=== PATIENT | male | born 1940 | race Caucasian/White ===

== ENCOUNTER 2023-09-26 17:13 | Inpatient (IN) | payer MEDICARE ==
[2023-09-26] MEDS: LIDOCAINE 4% PATCH TOPICAL ONE (18:08)
[2023-09-26 18:21] LABS: HCT 47.7 % (39.0-53.0); HGB 15.6 gm/dL (13.0-17.5); MCH 33.9 pg (25.0-35.0); MCHC 32.8 g/dL (31.0-37.0); MCV 103.4 fL (80.0-100.0); Macrocytosis Moderate; Mean Platelet Volume 14.9; Platelet Count 128 k/uL (150-450); RBC 4.62 m/uL (4.30-5.90); RDW 15.9 % (11.5-15.5); WBC 14.3 k/uL (3.8-10.6)
[2023-09-26 18:43] LABS: African American GFR (CKD) 73 (>60 ml/min/1.73 sqM); Anion Gap 12 mmol/L; Blood Urea Nitrogen 21 mg/dL (9-20); Calcium 10.3 mg/dL (8.4-10.2); Carbon Dioxide 21 mmol/L (22-30); Chloride 104 mmol/L (98-107); Glucose 94 mg/dL (74-99); Non-African American GFR(CKD) 63 (>60 ml/min/1.73 sqM); Potassium 3.9 mmol/L (3.5-5.1); Sodium 137 mmol/L (137-145)
--- NOTE | 2023-09-26 18:47 | CT ---
EXAMINATION TYPE: CT lumbar spine wo con DATE OF EXAM: 09/26/2023 6:36 PM COMPARISON: None HISTORY: fall CT DLP: 669.7 mGycm Automated exposure control for dose reduction was used. Unenhanced CT of the lumbar spine was performed. Bone and soft tissue window settings are submitted as well as coronal and sagittal reconstructions. Findings: On the AP view, there is mild to moderate levoscoliosis. Lumbar vertebral segments are normal in alignment on the sagittal view. There are mild compression fractures of the superior endplates of L1 and L2, indeterminate age. There is no significant retropulsion. There is mild to moderate degenerative disease at the L2-3 level where there is mild to moderate dis c space narrowing and spondylosis. There is advanced degenerative disease at this L3-4, L4-5 and L5-S 1 levels where there is moderate to marked disc space narrowing, spondylosis and vacuum phenomena. Th ere are no large disc herniations. There is advanced facet arthropathy at the L4-5 level and mild facet arthropathy at the L2-3 and L3-4 levels. There are nondisplaced fractures of the bilateral sacral ala. . IMPRESSION: 1. Mild superior endplate fractures of L1 and L2 of indeterminate age. No significant retropulsion. 2. Nondisplaced fractures of the bilateral sacrum as described above. 3. Diffuse osteopenia. 4. Multilevel moderate to severe degenerative disc disease.
--- NOTE | 2023-09-26 18:50 | CT ---
EXAMINATION TYPE: CT pelvis wo con DATE OF EXAM: 09/26/2023 COMPARISON: None HISTORY: fall CT DLP: 245.6 mGycm Automated exposure control for dose reduction was used. FINDINGS: There are bilateral nondisplaced fractures of the sacral alar. The remaining pelvic structures are intact without fracture. There is moderate degenerative arthritis of the left hip and mild degenerative arthritis of the right hip. There are no hip fractures or dislocations. There is no diastases of the SI joints or pubic sym physis IMPRESSION: BILATERAL NONDISPLACED FRACTURES OF THE SACRAL ALA
[2023-09-26] MEDS ORDERED: NALOXONE 0.4 MG/ML 1 ML VIAL IV PRN (19:50)
[2023-09-26 19:52] LABS: Lymphocytes # (M) 1.86 k/uL (1.0-4.8); Monocytes # (M) 3.58 k/uL (0-1.0); Neutrophils # (M) 8.87 k/uL (1.3-7.7); Neutrophils % (M) 62 %; Nucleated Red Blood Cells 0 /100 WBC (0-0); Target Cells Present; Total Cells Counted 100
[2023-09-26 19:54] LABS: Large Platelets Present
[2023-09-26] MEDS ORDERED: ACETAMINOPHEN TAB 325 MG TAB PO PRN (20:02)
[2023-09-26] MEDS ORDERED: ONDANSETRON 4 MG/2 ML VIAL IVP PRN (20:02)
[2023-09-26] MEDS ORDERED: MORPHINE SULFATE 4 MG/ML SYRINGE IV PRN (20:02)
--- NOTE | 2023-09-26 20:04 | ED ---
General Adult HPI - General Chief complaint: Fall Stated complaint: Back pain Time Seen by Provider: 09/26/23 17:46 Source: patient, EMS, RN notes reviewed, old records reviewed Mode of arrival: EMS - History of Present Illness Initial comments: Patient is a 83-year-old male with past medical history remarkable for CMML, who presents emergency department complaining of lower back pain after a fall. Patient sat up on the edge of his bed and put weight on his feet when his socks caused him to slip and he fell straight down landing on his bottom. Did not hit his head. Did not lose consciousness. Only complains of lower back pain as well as pelvic pain. Denies any urinary or bowel incontinence or retention. Denies any lower extremity paralysis. Denies any saddle paresthesias. Is currently undergoing chemotherapy for CMML. Has no other acute complaints at this time. Presents for further evaluation. Is not on blood thinners. - Related Data Home Medications Medication Instructions Recorded Confirmed Acetaminophen [Tylenol Arthritis] 650 mg PO BID 09/26/23 09/26/23 Cholecalciferol (Vitamin D3) 50 mcg PO DAILY 09/26/23 09/26/23 [Vitamin D3 (50 Mcg = 2000 Iu)] Finasteride [Proscar] 5 mg PO DAILY 09/26/23 09/26/23 Latanoprost [Latanoprost 0.005%] 1 drop BOTH EYES DAILY 09/26/23 09/26/23 Levothyroxine Sodium [Synthroid] 100 mcg PO DAILY 09/26/23 09/26/23 Mv-Min/Folic/K1/Lycopen/Lutein 1 tab PO DAILY 09/26/23 09/26/23 [Centrum Silver Men Tablet] Ondansetron Odt [Zofran Odt] 4 mg PO Q8HR PRN 09/26/23 09/26/23 Tamsulosin [Flomax] 0.4 mg PO DAILY 09/26/23 09/26/23 Vitamin B Complex 1 cap PO DAILY 09/26/23 09/26/23 allopurinoL [Zyloprim] 100 mg PO DAILY 09/26/23 09/26/23 busPIRone HCl [Buspar] 10 mg PO BID 09/26/23 09/26/23 methocarbamoL [Robaxin-750] 750 mg PO TID PRN 09/26/23 09/26/23 Allergies Allergy/AdvReac Type Severity Reaction Status Date / Time Sulfa (Sulfonamide AdvReac Nausea Verified 09/26/23 17:39 Antibiotics) Review of Systems ROS Statement: Those systems with pertinent positive or pertinent negative responses have been documented in the HPI. Review of Systems: CONST: Denies fever EYES: Denies blurry vision ENT: Denies nasal congestion C/V: Denies Chest pain RESP: Denies shortness of breath GI: Denies abdominal pain : Denies dysuria SKIN: Denies rash. MSK: Endorses back pain NEURO: Denies headache ROS Other: All systems not noted in ROS Statement are negative. 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 Past Psychological History: Anxiety Smoking Status: Never smoker Past Alcohol Use History: None Reported Past Drug Use History: None Reported General Exam - General Exam Comments Initial Comments: General: Appears in no acute distress. HEAD: Normal with no signs of head trauma. EYES: PERRLA, EOMI, conjunctiva normal, no discharge. Pupils 3 mm and equal bilaterally. ENT: Hearing grossly intact, normal oropharynx. RESPIRATORY: Clear breath sounds bilaterally. No wheezes, rales, or rhonchi. C/V: Regular rate and rhythm. S1 and S2 auscultated, no edema, peripheral pulses 2+ and intact throughout ABD: Abd is soft, nontender, nondistended EXT: Normal range of motion, no obvious deformity no significant midline lumbar spine tenderness to palpation. No pelvis instability on palpation. Paraspinal muscle tenderness to palpation of the lower lumbar spine. No step-offs or deformities of the spine. SKIN: No rashes or lesions observed on exposed skin. NEURO: Alert and oriented x 4. Cranial nerves II-XII intact. No focal sensory o r strength deficits. Course Vital Signs 09/26/23 09/26/23 17:16 18:35 Temperature 97.6 F 98.0 F Pulse Rate 76 72 Respiratory 20 17 Rate Blood Pressure 148/66 138/70 O2 Sat by Pulse 99 99 Oximetry Medical Decision Making - Medical Decision Making Was pt. sent in by a medical professional or institution (, PA, TAFFY PULLER, urgent care, hospital, or skilled nursing...) When possible be specific @ -No Did you speak to anyone other than the patient for history (EMS, parent, family, police, friend...)? What history was obtained from this source @ -Patient's provides additional patient's past medical history as she is the primary historian and is aware of his current treatments. Did you review nursing and triage notes (agree or disagree)? Why? @ -I reviewed and agree with nursing and triage notes Were old charts reviewed (outside hosp., previous admission, EMS record, old EKG, old radiological studies, urgent care reports/EKG's, skilled nursing records)? Report findings @ -No old charts were reviewed Differential Diagnosis (chest pain, altered mental status, abdominal pain women, abdominal pain men, vaginal bleeding, weakness, fever, dyspnea, syncope, headache, dizziness, GI bleed, back pain, seizure, CVA, palpatations, mental health, musculoskeletal)? @ -Differential Musculoskeletal Muscular strain, contusion, ligament sprain, fracture, arthritis, septic arthritis, bursitis, cellulitis, muscle spasm, nerve compression, DVT, arterial occlusion, herpes zoster, electrolyte abnormality, tumor.... This is not meant to be in all inclusive list EKG interpreted by me (3pts min.). @ -None done X-rays interpreted by me (1pt min.). @ -None done CT interpreted by me (1pt min.). @ -CT lumbar spine and pelvis reveals L1 and L2 compression fractures of unknown age. Patient also has bilateral sacral pete fractures that are nondisplaced. U/S interpreted by me (1pt. min.). @ -None done What testing was considered but not performed or refused? (CT, X-rays, U/S, labs)? Why? @ -None What meds were considered but not given or refused? Why? @ -Offered systemic analgesia medications which were declined. Did you discuss the management of the patient with other professionals (professionals i.e. , PA, TAFFY PULLER, lab, RT, psych nurse, director of social media marketing, nutrition program instructor, teacher, logistics officer, rn case mgr)? Give summary @ -I spoke with on-call orthopedics, Dr. Flores. We discussed the imaging results. As the patient is nonoperative for his nondisplaced sacral fractures, and patient has been admitted for pain control, patient will be admitted under medicine with orthopedic consult as we both agree patient's care is nonoperative. I spoke with the admitting team, ISRAEL Joe of [facility] who accepted the admission. Was smoking cessation discussed for >3mins.? @ -No Was critical care preformed (if so, how long)? @ -No Were there social determinants of health that impacted care today? How? (Homelessness, low income, unemployed, alcoholism, drug addiction, transportation, low edu. Level, literacy, decrease access to med. care, group home, rehab)? @ -No Was there de-escalation of care discussed even if they declined (Discuss DNR or withdrawal of care, Hospice)? DNR status @ -No What co-morbidities impacted this encounter? (DM, HTN, Smoking, COPD, CAD, Cancer, CVA, ARF, Chemo, Hep., AIDS, mental health diagnosis, sleep apnea, morbid obesity)? @ -None Was patient admitted / discharged? Hospital course, mention meds given and route, prescriptions, significant lab abnormalities, going to OR and other pertinent info. @ -Based on the patient's presentation and physical exam, presents following a fall. Concern for possible lumbar spine or sacral injury. We will obtain CT imaging. I did offer analgesia medications which were declined. No red flag symptoms to suggest cauda equina symptoms. Will obtain basic labs. Family and patient were in agreement this plan. Vital signs within acceptable limits. Laboratory studies unremarkable. Within baseline for patient's CMML. CT imaging reveals lumbar compression fractures of L1 and L2 with no retropulsion of unknown chronicity as well as bilateral sacral fracture that is nondisplaced. Fractures appear to be nonoperative but patient is still in significant pain. I did recommend admission for pain control and he was in agreement this plan. No concern for cauda equina syndrome at this time. Neurologically intact. I spoke with orthopedic on-call Dr. Flores who was in agreement that this is a nonoperative injury. After discussion, we agreed to admit to medicine with orthopedics on this consult. I spoke with the admitting physician, ISRAEL Joe who accepted the admission for [facility]. Oncology consulted. Occult therapy consulted. Undiagnosed new problem with uncertain prognosis? @ -No Drug Therapy requiring intensive monitoring for toxicity (Heparin, Nitro, Insulin, Cardizem)? @ -No Were any procedures done? @ -No Diagnosis/symptom? @ -Bilateral nondisplaced pelvic fracture, lumbar spine compression fracture, fall Acute, or Chronic, or Acute on Chronic? @ -Acute Uncomplicated (without systemic symptoms) or Complicated (systemic symptoms)? @ -Uncomplicated Side effects of treatment? @ -No Exacerbation, Progression, or Severe Exacerbation? @ -No Poses a threat to life or bodily function? How? (Chest pain, [place], [place], pneumonia, PE, COPD, DKA, ARF, appy, cholecystitis, CVA, Diverticulitis, Homicidal, Suicidal, threat to staff... and all critical care pts) @ -Yes - Lab Data Result diagrams: 09/26/23 18:05 09/26/23 18:05 Lab Results 09/26/23 09/26/23 Range/Units 18:05 18:05 WBC 14.3 H (3.8-10.6) k/uL RBC 4.62 (4.30-5.90) m/uL Hgb 15.6 (13.0-17.5) gm/dL Hct 47.7 (39.0-53.0) % MCV 103.4 H (80.0-100.0) fL MCH 33.9 (25.0-35.0) pg MCHC 32.8 (31.0-37.0) g/dL RDW 15.9 H (11.5-15.5) % Plt Count 128 L (150-450) k/uL MPV 14.9 Neutrophils % (Manual) 62 % Lymphocytes % (Manual) 13 % Monocytes % (Manual) 25 % Neutrophils # (Manual) 8.87 H (1.3-7.7) k/uL Lymphocytes # (Manual) 1.86 (1.0-4.8) k/uL Monocytes # (Manual) 3.58 H (0-1.0) k/uL Nucleated RBCs 0 (0-0) /100 WBC Manual Slide Review Performed Large Platelets Present Macrocytosis Moderate Target Cells Present Sodium 137 (137-145) mmol/L Potassium 3.9 (3.5-5.1) mmol/L Chloride 104 (98-107) mmol/L Carbon Dioxide 21 L (22-30) mmol/L Anion Gap 12 mmol/L BUN 21 H (9-20) mg/dL Creatinine 1.09 (0.66-1.25) mg/dL Est GFR (CKD-EPI)AfAm 73 (>60 ml/min/1.73 sqM) Est GFR (CKD-EPI)NonAf 63 (>60 ml/min/1.73 sqM) Glucose 94 (74-99) mg/dL Calcium 10.3 H (8.4-10.2) mg/dL Disposition Clinical Impression: Sacral fracture, Lumbar compression fracture, Fall Disposition: ADMITTED IP TO THIS HOSP Condition: Stable Referrals: Nik Cristina MD [Primary Care Provider] - 1-2 days Time of Disposition: 19:54
[2023-09-26] MEDS ORDERED: ONDANSETRON ODT 4 MG TAB PO PRN (20:41)
[2023-09-26] MEDS ORDERED: methocarbamoL 750 MG TAB PO PRN (20:41)
[2023-09-26 21:12] LABS: INR 1.1 (<1.2); Prothrombin Time 12.1 sec (10.0-12.5)
[2023-09-26] MEDS: busPIRone HCl 10 MG TAB PO SCH (21:29)
[2023-09-27] MEDS: LEVOTHYROXINE 100 MCG TAB PO SCH (06:19)
[2023-09-27] MEDS: KETOROLAC 15 MG/ML 1 ML VIAL IVP PRN (06:55)
[2023-09-27] MEDS ORDERED: DOCUSATE 100 MG CAP PO PRN (07:44)
[2023-09-27] MEDS: LATANOPROST 0.005% OPHTH DROPS 2.5 ML BTL BOTH EYES SCH (08:11)
[2023-09-27] MEDS: polyethylene glycoL 3350 17 GM POWD.PACK PO SCH (08:45)
[2023-09-27] MEDS: allopurinoL 100 MG TAB PO SCH (08:45)
[2023-09-27] MEDS: TAMSULOSIN 0.4 MG CAP.ER.24H PO SCH ×2 (08:45→20:53)
[2023-09-27] MEDS: FINASTERIDE 5 MG TAB PO SCH (08:45)
--- NOTE | 2023-09-27 10:16 | P.CNOR ---
History of Present Illness - [facility] Consult date: 09/27/23 Consult reason: fracture History of present illness: The patient is an 83 y/o male with a history of CMML with current chemotherapy that presented to the emergency department at [facility] with a fall at home and low back pain. He states he slipped off his bed and fell directly on his buttocks. His pain now is very low in the back right at the pelvis. He does state recent issues with low back pain with some pain that radiates down the left leg. The patient was scheduling an open MRI of the lumbar spine with possible sedation at [place] due to the ongoing low back pain and was scheduled to start physical therapy next week. He does use a walker at home occasionally. Upon exam and imaging in the ER, bilateral sacral ala fractures were found and orthopedics was consulted for further evaluation and care. A CT of the lumbar spine was completed as well. 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 Past Psychological History: Anxiety Smoking Status: Never smoker Past Alcohol Use History: None Reported Past Drug Use History: None Reported - Past Family History Father History Unknown: Yes Family Medical History: No Reported History Medications and Allergies Home Medications Medication Instructions Recorded Confirmed Type Acetaminophen [Tylenol Arthritis] 650 mg PO BID 09/26/23 09/26/23 History Cholecalciferol (Vitamin D3) 50 mcg PO DAILY 09/26/23 09/26/23 History [Vitamin D3 (50 Mcg = 2000 Iu)] Finasteride [Proscar] 5 mg PO DAILY 09/26/23 09/26/23 History Latanoprost [Latanoprost 0.005%] 1 drop BOTH EYES DAILY 09/26/23 09/26/23 History Levothyroxine Sodium [Synthroid] 100 mcg PO DAILY 09/26/23 09/26/23 History Mv-Min/Folic/K1/Lycopen/Lutein 1 tab PO DAILY 09/26/23 09/26/23 History [Centrum Silver Men Tablet] Ondansetron Odt [Zofran Odt] 4 mg PO Q8HR PRN 09/26/23 09/26/23 History Tamsulosin [Flomax] 0.4 mg PO DAILY 09/26/23 09/26/23 History Vitamin B Complex 1 cap PO DAILY 09/26/23 09/26/23 History allopurinoL [Zyloprim] 100 mg PO DAILY 09/26/23 09/26/23 History busPIRone HCl [Buspar] 10 mg PO BID 09/26/23 09/26/23 History methocarbamoL [Robaxin-750] 750 mg PO TID PRN 09/26/23 09/26/23 History Allergies Allergy/AdvReac Type Severity Reaction Status Date / Time Sulfa (Sulfonamide AdvReac Nausea Verified 09/26/23 17:39 Antibiotics) Physical Examination The patient is an 83 year-old male in no acute distress. He is alert and oriented 3. The patient's head is normocephalic, atraumatic. No pain upon palpation to the cervical spine, no step-offs noted. Exam of the bilateral upper extremities reveal no obvious deformities or wounds. Exam of the right lower extremity reveals no deformity or wounds. No pain upon range of motion of the bilateral legs. He is able to lift them off the bed. There is no pain the lateral hips or upon AP and lateral compression of the pelvis. There is mild tenderness to palpation to the sacrum bilaterally. Calves are soft and nontender. Good foot and ankle motion. Circulatory status is intact. Results CT of the pelvis dated 09/26/2023 reveals bilateral nondisplaced fractures of the sacral ala. No other fractures seen. CT of the lumbar spine dated 09/26/2023 reveals mild superior endplate fractures of L1 and L2 of indeterminant age. There is degenerative disc disease of L2-L3, L3-L4, L4-L5, L5-S1. - Labs Labs: Abnormal Lab Results - Last 24 Hours (Table) 09/26/23 09/26/23 Range/Units 18:05 18:05 WBC 14.3 H (3.8-10.6) k/uL MCV 103.4 H (80.0-100.0) fL RDW 15.9 H (11.5-15.5) % Plt Count 128 L (150-450) k/uL Neutrophils # (Manual) 8.87 H (1.3-7.7) k/uL Monocytes # (Manual) 3.58 H (0-1.0) k/uL Carbon Dioxide 21 L (22-30) mmol/L BUN 21 H (9-20) mg/dL Calcium 10.3 H (8.4-10.2) mg/dL H & H 09/26/23 Range/Units 18:05 Hgb 15.6 (13.0-17.5) gm/dL Hct 47.7 (39.0-53.0) % Coagulation 09/26/23 Range/Units 20:34 INR 1.1 (<1.2) Result Diagrams: 09/27/23 07:23 09/27/23 07:23 Assessment and Plan (1) Fall Current Visit: Yes Status: Acute Code(s): W19.XXXA - UNSPECIFIED FALL, INITIAL ENCOUNTER SNOMED Code(s): 5890667 (2) Lumbar compression fracture Current Visit: Yes Status: Acute Code(s): S32.000A - WEDGE COMPRESSION FRACTURE OF UNSP LUMBAR VERTEBRA, INIT SNOMED Code(s): 907606090 (3) Sacral fracture Current Visit: Yes Status: Acute Code(s): S32.10XA - UNSP FRACTURE OF SACRUM, INIT ENCNTR FOR CLOSED FRACTURE SNOMED Code(s): 222921539 Plan: The clinical and imaging findings were discussed at length with the patient and his . The case was discussed with Dr. Flores. No surgical intervention is planned. The nature of sacral fractures were discussed with the patient and . He may weightbear as tolerated with a walker. PT and OT have been consulted. Continue pain management, oral pain medication will be started today. The patient is likely safe to return home with the help of his and home PT. We will await evaluation by PT. Discharge is likely in the next 1-2 days. We will continue to follow the patient closely.
[2023-09-27] MEDS ORDERED: traMADol 50 MG TAB PO PRN (10:27)
[2023-09-27 12:26] LABS: BUN/Creat Ratio 14.64 Ratio (12.00-20.00); Blood Urea Nitrogen 20.5 mg/dL (9.0-27.0); Calcium 10.5 mg/dL (8.7-10.3); Carbon Dioxide 19.6 mmol/L (21.6-31.8); Chloride 101 mmol/L (96-109); Glucose 119 mg/dL (70-110); Potassium 4.2 mmol/L (3.5-5.5); Sodium 137 mmol/L (135-145)
[2023-09-27 12:56] LABS: Basophils # (M) 0.17 X 10*3/uL (0.00-0.10); Eosinophils # (M) 0 X 10*3/uL (0.04-0.35); HCT 41.9 % (39.6-50.0); HGB 14.9 g/dL (13.0-17.0); Immature Platelet Fraction 31.6 % (1.1-6.1); Lymphocytes # (M) 2.67 X 10*3/uL (0.90-5.00); MCH 33.8 pg (27.0-32.0); MCHC 35.6 g/dL (32.0-37.0); Macrocytosis (M) 2+; Monocytes # (M) 5.35 X 10*3/uL (0.20-1.00); NRBC Per 100 WBC 0 X 10*3/uL (0.00-0.01); Neutrophils # (M) 8.52 X 10*3/uL (1.80-7.70); Neutrophils % (M) 51 %; Platelet Count 114 X 10*3/uL (140-440); RBC 4.41 X 10*6/uL (4.40-5.60); RDW 18.6 % (11.5-14.5); Target Cells 2+; WBC 16.71 X 10*3/uL (4.50-10.00)
--- NOTE | 2023-09-27 13:33 | P.HPIM ---
History of Present Illness H&P Date: 09/27/23 History of present illness; patient is a 83-year-old gentleman with past medical history significant for CMML who presented to the ER because of a fall. Patient stated that he was all right this morning and while sitting at the edge of his bed, he slipped while trying to get up landing on his buttocks. Patient did not hit his head. There was no complaint of loss of consciousness. There was no complaint of lightheadedness or dizziness prior to the fall. Following that patient started noticing pain in his buttocks there was no complaint of weakness of any extremity. No complaint of fecal or urinary incontinence. Because of the fall, patient was brought to the ER Initial lab work done in the ER showed WBC 14.3, hemoglobin 15.6, platelet count 128, sodium 137, potassium 3.9, chloride 104, carbon is a 21, BUN 21, creatinine 1.09, calcium 10.3 EKG done in the ER showed heart rate of , no ST segment elevation or depression seen, no T-wave inversions seen. CT lumbar spine done showed mild superior endplate fracture of L1 and L2 of indeterminate age Chest x-ray done in the ER CT head done showed no acute intracranial process CTA head and neck done showed no significant stenosis, aneurysm or thrombus in the intracranial circulation CT pelvis done showed bilateral nondisplaced fractures of the sacral pete Patient admitted to internal medicine service REVIEW OF SYSTEMS: CONSTITUTIONAL: No fever, no malaise, no fatigue. HEENT: No recent visual problems or hearing problems. Denied any sore throat. CARDIOVASCULAR: No chest pain, orthopnea, PND, no palpitations, no syncope. PULMONARY: No shortness of breath, no cough, no hemoptysis. GASTROINTESTINAL: No diarrhea, no nausea, no vomiting, no abdominal pain. NEUROLOGICAL: No headaches, no weakness, no numbness. HEMATOLOGICAL: Denies any bleeding or petechiae. GENITOURINARY: Denies any burning micturition, frequency, or urgency. MUSCULOSKELETAL/RHEUMATOLOGICAL: As mentioned above The rest of the 14-point review of systems is negative. PHYSICAL EXAMINATION: GENERAL: The patient is alert and oriented x3, not in any acute distress. Well developed, well nourished. HEENT: Pupils are round and equally reacting to light. EOMI. No scleral icterus. No conjunctival pallor. Normocephalic, atraumatic. No pharyngeal erythema. No thyromegaly. CARDIOVASCULAR: S1 and S2 present. No murmurs, rubs, or gallops. PULMONARY: Chest is clear to auscultation, no wheezing or crackles. ABDOMEN: Soft, nontender, nondistended, normoactive bowel sounds. No palpable organomegaly. MUSCULOSKELETAL: No joint swelling or deformity. EXTREMITIES: No cyanosis, clubbing, or pedal edema. NEUROLOGICAL: Gross neurological examination did not reveal any focal deficits. SKIN: No rashes. Assessment and plan Fall bilateral nondisplaced fractures of the sacral pete superior endplate fracture of L1 and L2 History of CMML Hypothyroidism History of urinary retention Monitor vital signs Monitor CBC Monitor CMP Continue telemetry monitoring Continue IV fluids continue antiemetics Continue pain management Orthopedic consulted Hematology oncology consulted for history of CMML PT OT consulted Labs and medication were reviewed.. Continue same treatment. Continue with symptomatic treatment. Resume home medication. Monitor labs and vitals. DVT and GI prophylaxis. Further recommendations as per clinical course of the patient Dictation was produced using [employer] dictation software. please excuse any grammatical, word or spelling errors. 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 Past Psychological History: Anxiety Smoking Status: Never smoker Past Alcohol Use History: None Reported Past Drug Use History: None Reported - Past Family History Father History Unknown: Yes Family Medical History: No Reported History Medications and Allergies Home Medications Medication Instructions Recorded Confirmed Type Acetaminophen [Tylenol Arthritis] 650 mg PO BID 09/26/23 09/26/23 History Cholecalciferol (Vitamin D3) 50 mcg PO DAILY 09/26/23 09/26/23 History [Vitamin D3 (50 Mcg = 2000 Iu)] Finasteride [Proscar] 5 mg PO DAILY 09/26/23 09/26/23 History Latanoprost [Latanoprost 0.005%] 1 drop BOTH EYES DAILY 09/26/23 09/26/23 History Levothyroxine Sodium [Synthroid] 100 mcg PO DAILY 09/26/23 09/26/23 History Mv-Min/Folic/K1/Lycopen/Lutein 1 tab PO DAILY 09/26/23 09/26/23 History [Centrum Silver Men Tablet] Ondansetron Odt [Zofran Odt] 4 mg PO Q8HR PRN 09/26/23 09/26/23 History Tamsulosin [Flomax] 0.4 mg PO DAILY 09/26/23 09/26/23 History Vitamin B Complex 1 cap PO DAILY 09/26/23 09/26/23 History allopurinoL [Zyloprim] 100 mg PO DAILY 09/26/23 09/26/23 History busPIRone HCl [Buspar] 10 mg PO BID 09/26/23 09/26/23 History methocarbamoL [Robaxin-750] 750 mg PO TID PRN 09/26/23 09/26/23 History Allergies Allergy/AdvReac Type Severity Reaction Status Date / Time Sulfa (Sulfonamide AdvReac Nausea Verified 09/26/23 17:39 Antibiotics) Physical Exam Vitals: Vital Signs Temp Pulse Resp BP Pulse Ox 09/27/23 08:00 18 09/27/23 06:49 82 18 144/75 95 09/27/23 01:00 74 16 131/87 95 09/26/23 18:35 98.0 F 72 17 138/70 99 09/26/23 17:16 97.6 F 76 20 148/66 99 Intake and Output 09/26/23 09/27/23 09/27/23 22:59 06:59 14:59 Other: Voiding Method Toilet Weight 66.224 kg 66.224 kg Results CBC & Chem 7: 09/26/23 18:05 09/26/23 18:05 Labs: Abnormal Lab Results - Last 24 Hours (Table) 09/26/23 09/26/23 Range/Units 18:05 18:05 WBC 14.3 H (3.8-10.6) k/uL MCV 103.4 H (80.0-100.0) fL RDW 15.9 H (11.5-15.5) % Plt Count 128 L (150-450) k/uL Neutrophils # (Manual) 8.87 H (1.3-7.7) k/uL Monocytes # (Manual) 3.58 H (0-1.0) k/uL Carbon Dioxide 21 L (22-30) mmol/L BUN 21 H (9-20) mg/dL Calcium 10.3 H (8.4-10.2) mg/dL Thrombosis Risk Factor Assmnt - Choose All That Apply Any of the Below Risk Factors Present?: Yes Other Risk Factors: Yes Each Risk Factor Represents 3 Points: Age 75 years or older Thrombosis Risk Factor Assessment Total Risk Factor Score: 3 Thrombosis Risk Factor Assessment Level: Moderate Risk
[2023-09-27] MEDS: HYDROcodone/APAP 5-325MG 1 EACH TAB PO PRN (18:44)
[2023-09-27] MEDS: SODIUM CHLORIDE 0.9% 1,000 ML IV SCH (20:51)
[2023-09-28 08:46] VITALS: BP 163/77; PULSE 60; RESP 17; TEMP 97.7
--- NOTE | 2023-09-28 08:55 | P.PN ---
Subjective Progress Note Date: 09/28/23 The patient is an 83 y/o male with a history of CMML with current chemotherapy that presented to the emergency department at [facility] with a fall at home and low back pain. He states he slipped off his bed and fell directly on his buttocks. His pain now is very low in the back right at the pelvis. He does state recent issues with low back pain with some pain that radiates down the left leg. The patient was scheduling an open MRI of the lumbar spine with possible sedation at [facility] due to the ongoing low back pain and was scheduled to start physical therapy next week. He does use a walker at home occasionally. Upon exam and imaging in the ER, bilateral sacral ala fractures were found and orthopedics was consulted for further evaluation and care. A CT of the lumbar spine was completed as well. 09/28/2023: The patient states his pain is controlled and he worked with physical therapy yesterday. He has been ambulating to the bathroom without much difficulty. He is ready to go home today. Objective - Vital Signs Vital signs: Vital Signs Temp 97.7 F 09/28/23 07:08 Pulse 60 09/28/23 07:08 Resp 17 09/28/23 07:08 BP 163/77 09/28/23 07:08 Pulse Ox 97 09/28/23 07:08 FiO2 Intake & Output 09/27/23 09/28/23 09/28/23 18:59 06:59 18:59 Output Total 404 Balance -404 Weight 66.224 kg Output: Urine 404 Other: Voiding Method Toilet Toilet # Voids 1 - Exam The patient is an 83 year-old male in no acute distress. He is alert and oriented 3. The patient's head is normocephalic, atraumatic. No pain upon palpation to the cervical spine, no step-offs noted. Exam of the bilateral upper extremities reveal no obvious deformities or wounds. Exam of the right lower extremity reveals no deformity or wounds. No pain upon range of motion of the bilateral legs. He is able to lift them off the bed. There is no pain the lateral hips or upon AP and lateral compression of the pelvis. There is mild tenderness to palpation to the sacrum bilaterally. Calves are soft and nontender. Good foot and ankle motion. Circulatory status is intact. - Labs CBC & Chem 7: 09/27/23 07:23 09/27/23 07:23 Labs: Abnormal Lab Results - Last 24 Hours (Table) 09/27/23 09/27/23 Range/Units 07:23 07:23 WBC 16.71 H (4.50-10.00) X 10*3/uL MCH 33.8 H (27.0-32.0) pg RDW 18.6 H (11.5-14.5) % Plt Count 114 L (140-440) X 10*3/uL Neutrophils # (Manual) 8.52 H (1.80-7.70) X 10*3/uL Monocytes # (Manual) 5.35 H (0.20-1.00) X 10*3/uL Eosinophils # (Manual) 0 L (0.04-0.35) X 10*3/uL Basophils # (Manual) 0.17 H (0.00-0.10) X 10*3/uL Immature Plt Fraction 31.6 H (1.1-6.1) % Macrocytosis (manual) 2+ A Target Cells 2+ A Carbon Dioxide 19.6 L (21.6-31.8) mmol/L Anion Gap 16.40 H (4.00-12.00) mmol/L Est GFR (CKD-EPI) 50 L (>=60) Glucose 119 H (70-110) mg/dL Calcium 10.5 H (8.7-10.3) mg/dL Assessment and Plan (1) Fall Current Visit: Yes Status: Acute Priority: Medium Code(s): W19.XXXA - UNSPECIFIED FALL, INITIAL ENCOUNTER SNOMED Code(s): 7427491 (2) Lumbar compression fracture Current Visit: Yes Status: Acute Code(s): S32.000A - WEDGE COMPRESSION FRACTURE OF UNSP LUMBAR VERTEBRA, INIT SNOMED Code(s): 950157106 (3) Sacral fracture Current Visit: Yes Status: Acute Priority: High Code(s): S32.10XA - UNSP FRACTURE OF SACRUM, INIT ENCNTR FOR CLOSED FRACTURE SNOMED Code(s): 391646693 Plan: The clinical and imaging findings were discussed at length with the patient. The case was discussed with Dr. Flores. No surgical intervention is planned. The nature of sacral fractures were discussed with the patient and . He may weightbear as tolerated with a walker. PT and OT have been consulted. Continue pain management with [place]. The patient is likely safe to return home with the help of his and home PT. PT would like to complete stairs on him before discharge but it is not required. He is stable for discharge from an orthopedic standpoint and he will follow up with Dr. Flores in our office in 2-3 weeks.
--- NOTE | 2023-09-28 10:26 | P.CONS ---
History of Present Illness - Reason for Consult Consult date: 09/27/23 CMML Requesting physician: Tesfaye Jones - Chief Complaint fall - History of Present Illness Patient is an 83-year-old male with a significant history of CMML. He is a patient of Dr. Pastor at [facility]. He is currently receiving treatment with Vidaza 5 days a month, last receiving treatment yesterday. Patient presented to the emergency room for fall and lower back pain. Patient reports he was getting off his bed and his feet slipped out from underneath him landing on his butt. Patient denies head injury and loss of consciousness. Upon admission CT lumbar spine showed mild superior endplate fractures of L1 and L2 of indeterminate age with no significant retropulsion. Nondisplaced fractures of the bilateral sacrum. Diffuse osteopenia and multilevel moderate to severe degenerative disc disease. CT pelvis showing bilateral nondisplaced fractures of the sacral ala. Orthopedic surgery has been consulted. CBC reviewed, hemoglobin 14.3, hemoglobin 15.6, platelets 128,000. Monocytes 3.58, neutrophils 8.27. 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 Past Psychological History: Anxiety Smoking Status: Never smoker Past Alcohol Use History: None Reported Past Drug Use History: None Reported - Past Family History Father History Unknown: Yes Family Medical History: No Reported History Medications and Allergies Home Medications Medication Instructions Recorded Confirmed Type Acetaminophen [Tylenol Arthritis] 650 mg PO BID 09/26/23 09/26/23 History Cholecalciferol (Vitamin D3) 50 mcg PO DAILY 09/26/23 09/26/23 History [Vitamin D3 (50 Mcg = 2000 Iu)] Finasteride [Proscar] 5 mg PO DAILY 09/26/23 09/26/23 History Latanoprost [Latanoprost 0.005%] 1 drop BOTH EYES DAILY 09/26/23 09/26/23 History Levothyroxine Sodium [Synthroid] 100 mcg PO DAILY 09/26/23 09/26/23 History Mv-Min/Folic/K1/Lycopen/Lutein 1 tab PO DAILY 09/26/23 09/26/23 History [Centrum Silver Men Tablet] Ondansetron Odt [Zofran Odt] 4 mg PO Q8HR PRN 09/26/23 09/26/23 History Tamsulosin [Flomax] 0.4 mg PO DAILY 09/26/23 09/26/23 History Vitamin B Complex 1 cap PO DAILY 09/26/23 09/26/23 History allopurinoL [Zyloprim] 100 mg PO DAILY 09/26/23 09/26/23 History busPIRone HCl [Buspar] 10 mg PO BID 09/26/23 09/26/23 History methocarbamoL [Robaxin-750] 750 mg PO TID PRN 09/26/23 09/26/23 History Docusate [Colace] 100 mg PO BID #60 capsule 09/28/23 Rx HYDROcodone/APAP 5-325MG [[place] 5] 1 each PO Q6HR PRN #30 tab 09/28/23 Rx Allergies Allergy/AdvReac Type Severity Reaction Status Date / Time Sulfa (Sulfonamide AdvReac Nausea Verified 09/26/23 17:39 Antibiotics) Physical Exam Vitals: Vital Signs Temp Pulse Pulse Resp BP BP Pulse Ox 09/27/23 15:45 97.9 F 70 16 147/70 96 09/27/23 14:00 98.2 F 69 18 146/71 95 09/27/23 08:00 18 09/27/23 06:49 82 18 144/75 95 09/27/23 01:00 74 16 131/87 95 09/26/23 18:35 98.0 F 72 17 138/70 99 09/26/23 17:16 97.6 F 76 20 148/66 99 Intake and Output 09/27/23 09/27/23 09/27/23 06:59 14:59 22:59 Other: Voiding Method Toilet Weight 66.224 kg 66.224 kg - Constitutional General appearance: average body habitus, no acute distress - EENT Eyes: anicteric sclerae, EOMI ENT: hearing grossly normal - Respiratory Respiratory: bilateral: CTA - Cardiovascular Rhythm: regular Heart sounds: normal: S1, S2 - Gastrointestinal General gastrointestinal: soft, no tenderness - Integumentary Integumentary: no cyanotic - Neurologic no focal deficits - Musculoskeletal decreased ROM of lower spine, using walker Musculoskeletal: strength equal bilaterally - Psychiatric Psychiatric: A&O x's 3 Results CBC & Chem 7: 09/27/23 07:23 09/27/23 07:23 Labs: Abnormal Lab Results - Last 24 Hours (Table) 09/26/23 09/26/23 09/27/23 Range/Units 18:05 18:05 07:23 WBC 14.3 H 16.71 H (3.8-10.6) k/uL MCV 103.4 H (80.0-100.0) fL MCH 33.8 H (27.0-32.0) pg RDW 15.9 H 18.6 H (11.5-15.5) % Plt Count 128 L 114 L (150-450) k/uL Neutrophils # (Manual) 8.87 H 8.52 H (1.3-7.7) k/uL Monocytes # (Manual) 3.58 H 5.35 H (0-1.0) k/uL Eosinophils # (Manual) 0 L (0.04-0.35) X 10*3/uL Basophils # (Manual) 0.17 H (0.00-0.10) X 10*3/uL Immature Plt Fraction 31.6 H (1.1-6.1) % Macrocytosis (manual) 2+ A Target Cells 2+ A Carbon Dioxide 21 L (22-30) mmol/L Anion Gap (4.00-12.00) mmol/L BUN 21 H (9-20) mg/dL Est GFR (CKD-EPI) (>=60) Glucose (70-110) mg/dL Calcium 10.3 H (8.4-10.2) mg/dL 09/27/23 Range/Units 07:23 WBC (3.8-10.6) k/uL MCV (80.0-100.0) fL MCH (27.0-32.0) pg RDW (11.5-15.5) % Plt Count (150-450) k/uL Neutrophils # (Manual) (1.3-7.7) k/uL Monocytes # (Manual) (0-1.0) k/uL Eosinophils # (Manual) (0.04-0.35) X 10*3/uL Basophils # (Manual) (0.00-0.10) X 10*3/uL Immature Plt Fraction (1.1-6.1) % Macrocytosis (manual) Target Cells Carbon Dioxide 19.6 L (22-30) mmol/L Anion Gap 16.40 H (4.00-12.00) mmol/L BUN (9-20) mg/dL Est GFR (CKD-EPI) 50 L (>=60) Glucose 119 H (70-110) mg/dL Calcium 10.5 H (8.4-10.2) mg/dL Comments: CT lumbar spine and pelvis reviewed Assessment and Plan (1) CMML (chronic myelomonocytic leukemia) Current Visit: No Status: Acute Priority: Medium Code(s): C93.10 - CHRONIC MYELOMONOCYTIC LEUKEMIA NOT ACHIEVE REMISSION SNOMED Code(s): 843210251 (2) Fall Current Visit: Yes Status: Acute Priority: Medium Code(s): W19.XXXA - UNSPECIFIED FALL, INITIAL ENCOUNTER SNOMED Code(s): 2576885 (3) Sacral fracture Current Visit: Yes Status: Acute Priority: High Code(s): S32.10XA - UNSP FRACTURE OF SACRUM, INIT ENCNTR FOR CLOSED FRACTURE SNOMED Code(s): 351948403 (4) Lumbar compression fracture Current Visit: Yes Status: Acute Priority: Medium Code(s): S32.000A - WEDGE COMPRESSION FRACTURE OF UNSP LUMBAR VERTEBRA, INIT SNOMED Code(s): 247728608 Plan: Sacral ala fracture: Presented to the emergency room for fall and lower back pain. -CT lumbar spine showed mild superior endplate fractures of L1 and L2 of indeterminate age with no significant retropulsion. Nondisplaced fractures of the bilateral sacrum. Diffuse osteopenia and multilevel moderate to severe degenerative disc disease. CT pelvis showing bilateral nondisplaced fractures of the sacral ala -Defer management to Orthopedic surgery CMML: -Follows with Dr. Darby Messer [place]. He is currently receiving treatment with Vidaza 5 days a month, last receiving treatment yesterday. -CBC is stable, hemoglobin 14.3, hemoglobin 15.6, platelets 128,000. Monocytes 3.58, neutrophils 8.27. Do not have access to [facility] records, but pts reports he has been tolerating treatment well, and has had significant improvement in counts/CBC since starting treatment 5 months ago -Discussed with pt that we would recommend bone density scan outpt, and would likely benefit from treatment with bisphosphonate or equivalent -Will defer management and when to restart treatment to primary oncologist, Dr. Pastor Doctor attests: I performed a history and physical examination of this patient, developed impression and plan of care. Discussed with dictator. I agree with dictators note, documented as a scribe.
--- NOTE | 2023-09-28 13:34 | P.DS ---
Providers Date of admission: 09/27/23 09:24 Expected date of discharge: 09/28/23 Attending physician: Skyla Gutiérrez Consults: 09/26/23 19:50 Consult Physician Routine Consulting Provider: Yohana Flores Consult Reason/Comments: bilateral sacral ala fractures, old lumbar compression fractures Do you want consulting provider notified?: Already Contacted 09/26/23 20:03 Consult Physician Routine Consulting Provider: Bernardo Howard Consult Reason/Comments: CMML Do you want consulting provider notified?: Yes Primary care physician: Nik Cristina MD Hospital Course: Discharge diagnoses; Fall bilateral nondisplaced fractures of the sacral pete superior endplate fracture of L1 and L2 History of CMML Hypothyroidism History of urinary retention Hospital course; patient is a 83-year-old gentleman with past medical history significant for CMML who presented to the ER because of a fall. Patient stated that he was all right this morning and while sitting at the edge of his bed, he slipped while trying to get up landing on his buttocks. Patient did not hit his head. There was no complaint of loss of consciousness. There was no complaint of lightheadedness or dizziness prior to the fall. Following that patient started noticing pain in his buttocks there was no complaint of weakness of any extremity. No complaint of fecal or urinary incontinence. Because of the fall, patient was brought to the ER Initial lab work done in the ER showed WBC 14.3, hemoglobin 15.6, platelet count 128, sodium 137, potassium 3.9, chloride 104, carbon is a 21, BUN 21, creatinine 1.09, calcium 10.3 EKG done in the ER showed heart rate of , no ST segment elevation or depression seen, no T-wave inversions seen. CT lumbar spine done showed mild superior endplate fracture of L1 and L2 of inde terminate age Chest x-ray done in the ER CT head done showed no acute intracranial process CTA head and neck done showed no significant stenosis, aneurysm or thrombus in the intracranial circulation CT pelvis done showed bilateral nondisplaced fractures of the sacral pete Patient admitted to internal medicine service 09/27. Patient seen and examined. Orthopedic has evaluated the patient, recomme nded conservative management with pain control and therapy. Patient has worked with physical therapy and they have cleared the patient to be discharged home.patient to follow up outpatient with his own hand tube winder/oncologist PHYSICAL EXAMINATION: GENERAL: The patient is alert and oriented x3, not in any acute distress. Well developed, well nourished. HEENT: Pupils are round and equally reacting to light. EOMI. No scleral icterus. No conjunctival pallor. Normocephalic, atraumatic. No pharyngeal erythema. No thyromegaly. CARDIOVASCULAR: S1 and S2 present. No murmurs, rubs, or gallops. PULMONARY: Chest is clear to auscultation, no wheezing or crackles. ABDOMEN: Soft, nontender, nondistended, normoactive bowel sounds. No palpable organomegaly. MUSCULOSKELETAL: No joint swelling or deformity. EXTREMITIES: No cyanosis, clubbing, or pedal edema. NEUROLOGICAL: Gross neurological examination did not reveal any focal deficits. SKIN: No rashes. Dictation was produced using [employer] dictation software. please excuse any grammatical, word or spelling errors. Patient Condition at Discharge: Fair Plan - Discharge Summary Discharge Rx Participant: Yes New Discharge Prescriptions: New Docusate [Colace] 100 mg PO BID #60 capsule HYDROcodone/APAP 5-325MG [[place] 5] 1 each PO Q6HR PRN #30 tab PRN Reason: Pain No Action busPIRone HCl [Buspar] 10 mg PO BID allopurinoL [Zyloprim] 100 mg PO DAILY Vitamin B Complex 1 cap PO DAILY Levothyroxine Sodium [Synthroid] 100 mcg PO DAILY Latanoprost [Latanoprost 0.005%] 1 drop BOTH EYES DAILY Cholecalciferol (Vitamin D3) [Vitamin D3 (50 Mcg = 2000 Iu)] 50 mcg PO DAILY Tamsulosin [Flomax] 0.4 mg PO DAILY Finasteride [Proscar] 5 mg PO DAILY methocarbamoL [Robaxin-750] 750 mg PO TID PRN PRN Reason: Muscle Pain Ondansetron Odt [Zofran Odt] 4 mg PO Q8HR PRN PRN Reason: Nausea Mv-Min/Folic/K1/Lycopen/Lutein [Centrum Silver Men Tablet] 1 tab PO DAILY Acetaminophen [Tylenol Arthritis] 650 mg PO BID Discharge Medication List Acetaminophen [Tylenol Arthritis] 650 mg PO BID 09/26/23 [History] Cholecalciferol (Vitamin D3) [Vitamin D3 (50 Mcg = 2000 Iu)] 50 mcg PO DAILY 09/26/23 [History] Finasteride [Proscar] 5 mg PO DAILY 09/26/23 [History] Latanoprost [Latanoprost 0.005%] 1 drop BOTH EYES DAILY 09/26/23 [History] Levothyroxine Sodium [Synthroid] 100 mcg PO DAILY 09/26/23 [History] Mv-Min/Folic/K1/Lycopen/Lutein [Centrum Silver Men Tablet] 1 tab PO DAILY 09/26/23 [History] Ondansetron Odt [Zofran Odt] 4 mg PO Q8HR PRN 09/26/23 [History] Tamsulosin [Flomax] 0.4 mg PO DAILY 09/26/23 [History] Vitamin B Complex 1 cap PO DAILY 09/26/23 [History] allopurinoL [Zyloprim] 100 mg PO DAILY 09/26/23 [History] busPIRone HCl [Buspar] 10 mg PO BID 09/26/23 [History] methocarbamoL [Robaxin-750] 750 mg PO TID PRN 09/26/23 [History] Docusate [Colace] 100 mg PO BID #60 capsule 09/28/23 [Rx] HYDROcodone/APAP 5-325MG [[place] 5] 1 each PO Q6HR PRN #30 tab 09/28/23 [Rx] Follow up Appointment(s)/Referral(s): Yohana Flores DO [Doctor of Osteopathic Medicine] - 2 Weeks (Call office to make appointment.) Nik Cristina MD [Primary Care Provider] - 1-2 days Activity/Diet/Wound Care/Special Instructions: May weightbear on both legs as tolerated with a walker. Call [facility] with any questions or concerns, . Discharge Disposition: HOME WITH HOME HEALTH SERVICES
== END 2023-09-28 12:59 | disposition home or self-care (01) | DRG 552 ==
LOC: EC 17:13 → 4SSUR 20:03 → OBSVTOIN 09-27 09:24
PROVIDERS: ADMIT Hospitalist; ATTEND Hospitalist
DX: S32.110A Nondisplaced Zone I fracture of sacrum, initial encounter for closed fracture (principal); S32.019A Unspecified fracture of first lumbar vertebra, initial encounter for closed fracture; S32.029A Unspecified fracture of second lumbar vertebra, initial encounter for closed fracture; C93.10 Chronic myelomonocytic leukemia not having achieved remission; E03.9 Hypothyroidism, unspecified; Z28.310 Unvaccinated for COVID-19; M51.36 Other intervertebral disc degeneration, lumbar region; M85.80 Other specified disorders of bone density and structure, unspecified site; F41.9 Anxiety disorder, unspecified; Z79.890 Hormone replacement therapy; Z79.899 Other long term (current) drug therapy; Z88.2 Allergy status to sulfonamides; W06.XXXA Fall from bed, initial encounter; Y92.003 Bedroom of unspecified non-institutional (private) residence as the place of occurrence of the external cause
CPT/HCPCS: 36415; 72131; 72192; 80048; 85025; 85610; 85730; 96374; 99285